=== PATIENT | female | born 1995 | race African-American/Black ===

== ENCOUNTER 2022-05-23 00:08 | Emergency (ER) | payer OTHER, SELFPAY ==
[2022-05-23] VITALS (13 sets, daily range): BP systolic 118–130; BP diastolic 76–79; PULSE 65–84; RESP 14–18; TEMP 36.6–36.8; O2SAT 98–100
--- NOTE | ~2022-05-23 | XR_ITS ---
EXAMINATION: XR chest 2V DATE: 05/23/2022 03:04 INDICATION: Left-sided chest pain TECHNIQUE: PA and lateral views of the chest are obtained. COMPARISON: None available FINDINGS: The lungs are free of acute opacities. No pleural effusion or pneumothorax. The cardiomedia stinal silhouette is normal. The visualized bones and soft tissues are unremarkable. IMPRESSION: 1. No acute cardiopulmonary abnormality. Reviewed, dictated and finalized at location A. ING INSPECTOR
--- NOTE | 2022-05-23 00:44 | ECG_ITS ---
Measurements Intervals [place] Rate: 84 P: 18 FL: 146 QRS: 20 QRSD: 88 T: -6 QT: 375 QTc: 445 Interpretive Statements SINUS RHYTHM NO PREVIOUS ECG AVAILABLE FOR COMPARISON Electronically Signed On 05-23-2022 14:43:26 [employer] by Lakisha Ochoa M.D.
[2022-05-23] MEDS: BELLADONNA ALK/PHENOB ELIX 10 ML, MAG HYDROX/ALUMINUM HYD/SIMETH 30 ML, LIDOCAINE HCL 2... PO (03:08)
--- NOTE | 2022-05-23 03:16 | ED.CHESTPAIN ---
HPI - Chest Pain General Chief Complaint: Chest Pain Stated Complaint: CP Time Seen by Provider: 05/23/22 02:39 History of Present Illness HPI narrative: Patient is a 26-year-old female who presents ER with chest pain. Reports its burning associate with nausea and bubbling. Some radiation to the left shoulder. She reports this is her third visit to an ER in the last 3 weeks in regards to her chest. She was seen twice at [facility]. She reports she had blood work and was discharged home. This chest discomfort is different however. She does not have a primary care doctor in the area as she just moved here from [place]. 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 Related Data Allergies Allergy/AdvReac Type Severity Reaction Status Date / Time No Known Allergies Allergy Verified 05/23/22 03:02 Review of Systems Review of Systems: All systems reviewed & are unremarkable except as noted in HPI and below Constitutional: Constitutional: Denies chills, Denies fatigue and Denies fever(s) ENT: Denies nasal congestion and Denies sore throat Cardiovascular: Cardiovascular: Reports chest pain, Denies rapid heart rate and Reports radiating jaw, neck or arm pain Respiratory: Respiratory: Denies cough, Denies dyspnea and Denies wheezing Gastrointestinal: Gastrointestinal: Denies abdominal pain, Reports heartburn, Denies diarrhea, Reports nausea and Denies vomiting PMFSH Past Medical History Medical History (Updated 05/23/22 @ 03:52 by Emeka Khan MD) Mitral valve prolapse Surgical History Surgical History (Updated 05/23/22 @ 03:16 by Emeka Khan MD) No pertinent past surgical history Social History Social History (Updated 05/23/22 @ 03:16 by Emeka Khan MD) Smoking status: Never smoker Exam Narrative: GENERAL: Well-appearing, well-nourished, and in no acute distress. HEAD: Normocephalic, atraumatic. EYES: PERRL and EOMI. ENT: Mucous membranes moist. CHEST: Clear to auscultation. No respiratory distress. HEART: Regular rate and rhythm. Normal peripheral pulses. ABDOMEN: Soft, nontender, nondistended. EXTREMITIES: Normal range of motion. No edema. NEURO: Alert and oriented x3. PSYCH: Normal mood and affect. Course Course Emergency Course: Symptoms resolved with GI cocktail. Discharge home. Vital Signs Vital signs: Vital Signs Temperature 97.9 F 05/23/22 00:12 Pulse Rate 84 05/23/22 00:12 Respiratory Rate 14 05/23/22 00:12 Blood Pressure 130/76 05/23/22 00:12 Pulse Oximetry 100 05/23/22 00:12 Temperature 98.2 F 05/23/22 02:43 Pulse Rate 84 05/23/22 02:43 Respiratory Rate 18 05/23/22 02:43 Blood Pressure 126/79 05/23/22 02:43 Pulse Oximetry 99 05/23/22 02:43 MDM - Chest Pain Imaging Data My impression: Chest x-ray: No acute cardiopulmonary process. ECG Data EKG #1: ECG completion date: 05/23/22 ECG completion time: 00:41 EKG Interpretation: normal rate (84), sinus rhythm, no ectopy, no ST changes, normal QRS, normal QT and NL axis Discharge Plan Discharge Clinical Impression: GERD (gastroesophageal reflux disease) Patient Disposition: Home, Self-Care Condition: Stable Instructions: GERD (Gastroesophageal Reflux Disease) (ED) Additional Instructions: Return the ER if you have fever over 100.4 ?F, you cannot keep down food or water, you have chest pain with activity, you have additional concerns. Prescriptions: New esomeprazole magnesium 20 mg capsule,delayed release(DR/EC) 20 mg PO DAILY Qty: 14 0RF Follow-up/Referrals: David,Rodney Jaime MD [Primary Care Provider] - 1 Week
== END 2022-05-23 04:37 | disposition home or self-care (01) ==
PROVIDERS: Emergency Provider Emergency Medicine; PCP Family Medicine
DX: K21.9 Gastro-esophageal reflux disease without esophagitis (principal)
CPT/HCPCS: 71046; 93005; 99283; A9270

== ENCOUNTER 2022-05-25 23:26 | Emergency (ER) | payer OTHER, SELFPAY ==
[2022-05-25 23:31] VITALS: BP 132/85; PULSE 92; RESP 20; TEMP 36.2; O2SAT 100
--- NOTE | 2022-05-25 23:34 | ECG_ITS ---
Measurements Intervals [place] Rate: 81 P: 53 [place]: 120 QRS: 27 QRSD: 90 T: -16 QT: 356 QTc: 415 Interpretive Statements SINUS RHYTHM NONSPECIFIC ST AND T-WAVE ABNORMALITY COMPARED TO ECG 05/23/2022 00:22:41 NO SIGNIFICANT CHANGES Electronically Signed On 05-26-2022 17:53:48 [facility] by Elijah Griffith M.D.
--- NOTE | 2022-05-26 00:08 | ED.ANXIETY ---
HPI - Anxiety General Chief Complaint: Arrhythmia/Palpitations Stated Complaint: New medication reaction Time Seen by Provider: 05/25/22 23:59 History of Present Illness HPI narrative: 26-year-old female presents to the emergency room for evaluation of anxiety, headache, dizziness, palpitations, abdominal pain and insomnia. Patient states that she took Lexapro for the first time today and was seen in the emergency room for abdominal pain was found that she was experiencing side effects of the Lexapro. States that she fell asleep earlier this evening and woke up with severe anxiety and was unable to get back to sleep. Patient states that she has been to multiple emergency room's over the past 3 weeks for anxiety related complaints. Related Data Allergies Allergy/AdvReac Type Severity Reaction Status Date / Time No Known Allergies Allergy Verified 05/25/22 23:33 Review of Systems Review of Systems: CONSTITUTIONAL: Denies fever, chills, or sweats. EYES: Denies visual changes, redness, or discharge. ENT: Denies rhinorrhea, congestion, sore throat, or otalgia. CARDIOVASCULAR: Denies chest pain, palpitations, or edema. RESPIRATORY: Denies cough or dyspnea. GASTROINTESTINAL: Denies abdominal pain, nausea, vomiting, or diarrhea. GENITOURINARY: Denies dysuria or hematuria. SKIN: Denies rash or itching. MUSCULOSKELETAL: Denies back pain, joint pain, or myalgia. NEUROLOGIC: Denies headache, numbness, dizziness, or weakness. PSYCHIATRIC: Reports anxiety PMFSH Past Medical History Medical History (Updated 05/26/22 @ 00:13 by Calin Koenig APRN) Mitral valve prolapse Surgical History Surgical History (Updated 05/23/22 @ 03:16 by Emeka Khan MD) No pertinent past surgical history Social History Social History (Updated 05/23/22 @ 03:16 by Emeka Khan MD) Smoking status: Never smoker Exam Narrative: GENERAL: Well-appearing, well-nourished, no physical limitations, and in no acute distress. HEAD: Normocephalic, atraumatic. EYES: Conjunctivae normal, PERRLA and EOMI. CHEST: Clear to auscultation. No respiratory distress. No wheezes rales or rhonchi. HEART: Regular rate and rhythm. No murmur heard. Normal peripheral pulses. ABDOMEN: Soft, nontender, nondistended, normal active bowel sounds. EXTREMITIES: Normal range of motion. No edema. No clubbing or cyanosis SKIN: Warm, dry, no rash. No noted wounds NEURO: No focal deficits. Alert and oriented x3. MAEW. CN's II-XI intact bilaterally, normal gait PSYCH: Cooperative. Anxious. Course Vital Signs Vital signs: Vital Signs Temperature 36.2 C L 05/25/22 23:31 Pulse Rate 92 05/25/22 23:31 Respiratory Rate 20 05/25/22 23:31 Blood Pressure 132/85 05/25/22 23:31 Pulse Oximetry 100 05/25/22 23:31 Oxygen Delivery Room Air 05/25/22 23:31 Temperature 36.2 C L 05/25/22 23:31 Pulse Rate 92 05/25/22 23:31 Respiratory Rate 20 05/25/22 23:31 Blood Pressure 132/85 05/25/22 23:31 Pulse Oximetry 100 05/25/22 23:31 Oxygen Delivery Room Air 05/25/22 23:31 MDM - Anxiety Lab Data Labs: UCG Bedside Result Negative Reference Range: Negative ECG Data EKG #1: EKG Interpretation: normal rate, sinus rhythm, no ectopy, no ST changes, normal QRS, normal QT and NL axis Discharge Plan Discharge Clinical Impression: Anxiety, Palpitations Patient Disposition: Home, Self-Care Condition: Stable Instructions: Antibiotic Form, Anxiety (ED) Additional Instructions: Discontinue Lexapro. Recommend following up with your primary care provider tomorrow. Prescriptions: New lorazepam [Ativan] 0.5 mg tablet 0.5 mg PO BID PRN (Reason: anxiety) Qty: 14 0RF No Action esomeprazole magnesium 20 mg capsule,delayed release(DR/EC) 20 mg PO DAILY Qty: 14 0RF Follow-up/Referrals: David,Rodney Jaime MD [Primary Care Provider] - Time o
[2022-05-26] MEDS: LORazepam (*CRX) 1 MG TABLET PO (00:20)
== END 2022-05-26 00:23 | disposition home or self-care (01) ==
PROVIDERS: Emergency Provider Nurse Practitioner Family; PCP Family Medicine
DX: F41.9 Anxiety disorder, unspecified (principal); R00.2 Palpitations; I34.1 Nonrheumatic mitral (valve) prolapse; R94.31 Abnormal electrocardiogram [ECG] [EKG]
CPT/HCPCS: 81025; 93005; 99283; A9270